=== PATIENT | female | born 1980 | race Caucasian/White ===

== ENCOUNTER 2017-04-22 16:51 | Emergency (ER) | payer MEDICARE | END 2017-04-22 19:22 | disposition home or self-care (01) | LOC: D.ER 16:51 | DX: S59.912A Unspecified injury of left forearm, initial encounter (principal); V49.9XXA Car occupant (driver) (passenger) injured in unspecified traffic accident, initial encounter; Y93.89 Activity, other specified; Y92.410 Unspecified street and highway as the place of occurrence of the external cause ==